=== PATIENT | female | born 2000 | race Caucasian/White ===

== ENCOUNTER 2021-02-05 22:57 | Inpatient (IN) | payer BC ==
[2021-02-05] MEDS ORDERED: methylPREDNISolone Sod Succ/PF 125 MG/2 ML VIAL ONE (23:37)
[2021-02-05] MEDS ORDERED: OCTAGAM 10% 20 GM, OCTAGAM 10% 5 GM in Admixture Fee 1 EACH IVPB SCH (23:45)
[2021-02-05 23:49] LABS: #Basophils 0.1 thou/uL (0.0-0.2); #Eosinphils 0.1 thou/uL (0.0-0.7); #Lymphocytes 3.8 thou/uL (1.20-3.40); #Monocytes 0.6 thou/uL (0.11-0.59); %Eosinophils 0.7 % (0.0-10.0); %Monocytes 7.2 % (0.0-4.0); %Neutrophils 47.1 % (31.0-61.0); Hemoglobin 13.4 g/dL (12.0-16.0); Mean Corpuscular HGB CONC 33.5 g/dL (32.0-36.0); Mean Corpuscular Hemoglobin 30.9 pg (25.0-35.0); Mean Corpuscular Volume 92.1 fL (78.0-98.0); Mean Platelet Volume 8.4 fL (7.4-10.4); Platelet Count 305 thou/uL (130-400); RBC Distribution Width 11.2 % (11.5-14.5); Red Blood Cell (RBC) Count 4.33 mill/uL (4.00-5.20); White Blood Cell (WBC) Count 8.5 thou/uL (4.8-10.8)
[2021-02-06 00:05] LABS: ALT (SGPT) 8 U/L (8-55); AST (SGOT) 15 U/L (5-34); Albumin 4.5 g/dL (3.5-5.0); Alkaline Phosphatase 77 U/L (40-100); Anion Gap 12 mmol/L (10-20); BUN (Urea Nitrogen) 5 mg/dL (7.0-18.7); Bilirubin, Total 0.5 mg/dL (0.2-1.2); CK (CPK) 56 U/L (29-168); Calc. Creatinine Clearance 0 mL/min (70-130); Calcium 10.1 mg/dL (7.8-10.44); Carbon Dioxide 28 mmol/L (22-29); Chloride 103 mmol/L (98-107); Globulin 3.3 g/dL (2.4-3.5); Glucose 95 mg/dL (70-105); Potassium 3.5 mmol/L (3.5-5.1); Protein, Total 7.8 g/dL (6.0-8.3); Sodium 139 mmol/L (136-145)
[2021-02-06 00:07] LABS: BHCG - Serum Negative (NEGATIVE); Pregs Control Background? CLEAR/WHITE (CLR/WHITE); Pregs Control Bar Appear? YES (CONTROL BAR)
[2021-02-06 02:27] LABS: SARS-CoV-2 NAA Rapid Test Not Detected (NotDetected)
[2021-02-06 02:48] VITALS: BMI 18.7
[2021-02-06 06:10] LABS: ALT (SGPT) 7 U/L (8-55); AST (SGOT) 11 U/L (5-34); Albumin 4.1 g/dL (3.5-5.0); Alkaline Phosphatase 71 U/L (40-100); Anion Gap 14 mmol/L (10-20); BUN (Urea Nitrogen) 6 mg/dL (7.0-18.7); Bilirubin, Total 0.4 mg/dL (0.2-1.2); Calc. Creatinine Clearance 100 mL/min (70-130); Calcium 10.1 mg/dL (7.8-10.44); Carbon Dioxide 23 mmol/L (22-29); Chloride 105 mmol/L (98-107); Globulin 3.7 g/dL (2.4-3.5); Glucose 217 mg/dL (70-105); Potassium 4.2 mmol/L (3.5-5.1); Protein, Total 7.8 g/dL (6.0-8.3); Sodium 138 mmol/L (136-145)
[2021-02-06 06:21] LABS: #Lymphocytes 0.5 thou/uL (1.20-3.40); #Neutrophils 4.8 thou/uL (1.40-6.50); %Basophils 0.1 % (0.0-1.0); %Eosinophils 0.2 % (0.0-10.0); %Lymphocytes 9.8 % (28.0-48.0); %Monocytes 0.5 % (0.0-4.0); %Neutrophils 89.4 % (31.0-61.0); Hemoglobin 12.5 g/dL (12.0-16.0); Mean Corpuscular HGB CONC 33.5 g/dL (32.0-36.0); Mean Corpuscular Volume 92.3 fL (78.0-98.0); Mean Platelet Volume 8.4 fL (7.4-10.4); Platelet Count 314 thou/uL (130-400); RBC Distribution Width 11.2 % (11.5-14.5); Red Blood Cell (RBC) Count 4.04 mill/uL (4.00-5.20); White Blood Cell (WBC) Count 5.3 thou/uL (4.8-10.8)
[2021-02-06] MEDS ORDERED: Ondansetron PF 4 MG/2 ML Vial IVP PRN (08:42)
[2021-02-06] MEDS: Gabapentin 100 MG CAP PO SCH ×4 (08:48→20:38)
[2021-02-06] MEDS: traMADol HCl 50 MG TAB PO PRN (08:48)
[2021-02-06] MEDS: Enoxaparin Sodium 60 MG/0.6 ML SYRINGE SC SCH ×2 (08:48→20:38)
[2021-02-06] MEDS: Sodium Chloride 0.9% 1,000 ML IV SCH ×2 (08:49→20:36)
[2021-02-06] MEDS ORDERED: OCTAGAM 10% 20 GM, OCTAGAM 10% 5 GM in Admixture Fee 1 EACH IVPB SCH (09:00)
[2021-02-06] MEDS ORDERED: Magnevist 469MG/ML 20 ML VIAL ONE ×2 (10:24)
[2021-02-07] MEDS: OCTAGAM 10% 20 GM, OCTAGAM 10% 5 GM in Admixture Fee 1 EACH IVPB SCH (01:21)
[2021-02-07 05:43] LABS: Hemoglobin 10.4 g/dL (12.0-16.0); Mean Corpuscular HGB CONC 33.8 g/dL (32.0-36.0); Mean Corpuscular Hemoglobin 31.9 pg (25.0-35.0); Mean Corpuscular Volume 94.5 fL (78.0-98.0); Mean Platelet Volume 8.2 fL (7.4-10.4); Platelet Count 218 thou/uL (130-400); RBC Distribution Width 11.3 % (11.5-14.5); Red Blood Cell (RBC) Count 3.25 mill/uL (4.00-5.20); White Blood Cell (WBC) Count 7.3 thou/uL (4.8-10.8)
[2021-02-07] MEDS: Sodium Chloride 0.9% 1,000 ML IV SCH ×2 (06:38→16:07)
[2021-02-07 07:00] LABS: Band 3 % (5-11); Lymphocytes 60 % (28-48); MDiff Complete? YES; Monocytes 1 % (0-4); Neutrophil 36 % (31-61)
[2021-02-07] MEDS: Gabapentin 100 MG CAP PO SCH ×4 (08:04→20:10)
[2021-02-07] MEDS: Enoxaparin Sodium 60 MG/0.6 ML SYRINGE SC SCH ×2 (08:04→20:10)
[2021-02-07] MEDS: traMADol HCl 50 MG TAB PO PRN (14:58)
[2021-02-08] MEDS: OCTAGAM 10% 20 GM, OCTAGAM 10% 5 GM in Admixture Fee 1 EACH IVPB SCH (01:42)
[2021-02-08] MEDS: Sodium Chloride 0.9% 1,000 ML IV SCH ×3 (01:50→21:15)
[2021-02-08 04:14] LABS: Anion Gap 8 mmol/L (10-20); BUN (Urea Nitrogen) 10 mg/dL (7.0-18.7); CRP (Inflammatory) Less than 0.50 mg/dL (= or < 0.5); Calc. Creatinine Clearance 116 mL/min (70-130); Calcium 8.8 mg/dL (7.8-10.44); Carbon Dioxide 29 mmol/L (22-29); Chloride 103 mmol/L (98-107); Glucose 93 mg/dL (70-105); Potassium 4.1 mmol/L (3.5-5.1); Sodium 136 mmol/L (136-145)
[2021-02-08 04:16] LABS: Hemoglobin 11.1 g/dL (12.0-16.0); Mean Corpuscular HGB CONC 33.4 g/dL (32.0-36.0); Mean Corpuscular Hemoglobin 31.8 pg (25.0-35.0); Mean Corpuscular Volume 95.2 fL (78.0-98.0); Mean Platelet Volume 8.4 fL (7.4-10.4); Platelet Count 232 thou/uL (130-400); RBC Distribution Width 11.3 % (11.5-14.5); White Blood Cell (WBC) Count 5.6 thou/uL (4.8-10.8)
[2021-02-08 04:21] LABS: Hemoglobin A1c 4.9 % (4.0-6.0)
[2021-02-08 04:43] LABS: Eosinophils 3 % (0-10); Lymphocytes 59 % (28-48); MDiff Complete? YES; Monocytes 6 % (0-4); Neutrophil 32 % (31-61); RBC Morphology Normal
[2021-02-08] MEDS: traMADol HCl 50 MG TAB PO PRN ×3 (06:04→17:22)
[2021-02-08] MEDS ORDERED: SUMAtriptan Succinate 6 MG/0.5 ML VIAL SC PRN (07:34)
[2021-02-08] MEDS ORDERED: Lorazepam 1 MG TAB PO PRN (07:45)
[2021-02-08] MEDS: Enoxaparin Sodium 60 MG/0.6 ML SYRINGE SC SCH ×2 (08:19→21:14)
[2021-02-08] MEDS: Gabapentin 100 MG CAP PO SCH ×4 (08:19→21:14)
[2021-02-08] MEDS ORDERED: Prochlorperazine 10 MG/2 ML VIAL IVP SCH (13:15)
[2021-02-08] MEDS ORDERED: diphenhydrAMINE 50 MG/ML VIAL IVP SCH (13:15)
[2021-02-09] MEDS: OCTAGAM 10% 20 GM, OCTAGAM 10% 5 GM in Admixture Fee 1 EACH IVPB SCH (01:27)
[2021-02-09] MEDS: traMADol HCl 50 MG TAB PO PRN ×2 (02:03→09:35)
[2021-02-09 03:59] LABS: #Lymphocytes 2.5 thou/uL (1.20-3.40); #Monocytes 0.6 thou/uL (0.11-0.59); #Neutrophils 3.2 thou/uL (1.40-6.50); %Basophils 0.6 % (0.0-1.0); %Eosinophils 0.5 % (0.0-10.0); %Lymphocytes 39.8 % (28.0-48.0); %Monocytes 8.9 % (0.0-4.0); %Neutrophils 50.2 % (31.0-61.0); Hemoglobin 11.6 g/dL (12.0-16.0); Mean Corpuscular HGB CONC 35.4 g/dL (32.0-36.0); Mean Corpuscular Hemoglobin 32.7 pg (25.0-35.0); Mean Corpuscular Volume 92.3 fL (78.0-98.0); Mean Platelet Volume 8.4 fL (7.4-10.4); Platelet Count 239 thou/uL (130-400); RBC Distribution Width 10.9 % (11.5-14.5); Red Blood Cell (RBC) Count 3.53 mill/uL (4.00-5.20); White Blood Cell (WBC) Count 6.4 thou/uL (4.8-10.8)
[2021-02-09 04:18] LABS: Anion Gap 10 mmol/L (10-20); BUN (Urea Nitrogen) 8 mg/dL (7.0-18.7); CRP (Inflammatory) Less than 0.50 mg/dL (= or < 0.5); Calc. Creatinine Clearance 101 mL/min (70-130); Calcium 8.6 mg/dL (7.8-10.44); Carbon Dioxide 27 mmol/L (22-29); Chloride 100 mmol/L (98-107); Glucose 164 mg/dL (70-105); Potassium 3.4 mmol/L (3.5-5.1); Sodium 134 mmol/L (136-145)
[2021-02-09 04:55] LABS: Syphilis Antibody Index 1.84 S/CO (<1.00 Non-Reactive)
[2021-02-09] MEDS: Gabapentin 100 MG CAP PO SCH ×4 (08:48→20:50)
[2021-02-09] MEDS: Enoxaparin Sodium 60 MG/0.6 ML SYRINGE SC SCH ×2 (08:48→20:50)
[2021-02-09] MEDS: Sodium Chloride 0.9% 1,000 ML IV SCH ×2 (08:49→16:25)
[2021-02-09 10:14] LABS: Syphilis Antibody INDETERMINATE (Nonreactive)
[2021-02-09] MEDS ORDERED: Promethazine HCl 25 MG in Sodium Chloride 0.9% 50 ML IVPB PRN (11:44)
[2021-02-10] MEDS: OCTAGAM 10% 20 GM, OCTAGAM 10% 5 GM in Admixture Fee 1 EACH IVPB SCH (01:24)
[2021-02-10] MEDS: Sodium Chloride 0.9% 1,000 ML IV SCH ×2 (04:13→11:14)
[2021-02-10] MEDS: Gabapentin 100 MG CAP PO SCH ×2 (08:17→14:14)
[2021-02-10] MEDS: Enoxaparin Sodium 60 MG/0.6 ML SYRINGE SC SCH (08:19)
[2021-02-10 09:02] LABS: #Basophils 0.1 thou/uL (0.0-0.2); #Eosinphils 0.2 thou/uL (0.0-0.7); #Lymphocytes 2.7 thou/uL (1.20-3.40); #Monocytes 0.7 thou/uL (0.11-0.59); %Basophils 1.1 % (0.0-1.0); %Eosinophils 2.9 % (0.0-10.0); %Lymphocytes 48.8 % (28.0-48.0); %Monocytes 12.1 % (0.0-4.0); %Neutrophils 35.1 % (31.0-61.0); Hemoglobin 11.9 g/dL (12.0-16.0); Mean Corpuscular HGB CONC 32.6 g/dL (32.0-36.0); Mean Corpuscular Hemoglobin 30.2 pg (25.0-35.0); Mean Corpuscular Volume 92.6 fL (78.0-98.0); Mean Platelet Volume 8.6 fL (7.4-10.4); Platelet Count 275 thou/uL (130-400); RBC Distribution Width 11.1 % (11.5-14.5); Red Blood Cell (RBC) Count 3.94 mill/uL (4.00-5.20); White Blood Cell (WBC) Count 5.6 thou/uL (4.8-10.8)
[2021-02-10 09:34] LABS: ALT (SGPT) 20 U/L (8-55); AST (SGOT) 25 U/L (5-34); Albumin 3.4 g/dL (3.5-5.0); Alkaline Phosphatase 56 U/L (40-100); Anion Gap 9 mmol/L (10-20); BUN (Urea Nitrogen) 6 mg/dL (7.0-18.7); Bilirubin, Total 0.2 mg/dL (0.2-1.2); CRP (Inflammatory) Less than 0.50 mg/dL (= or < 0.5); Calc. Creatinine Clearance 121 mL/min (70-130); Calcium 9.4 mg/dL (7.8-10.44); Carbon Dioxide 30 mmol/L (22-29); Chloride 102 mmol/L (98-107); Globulin 5.1 g/dL (2.4-3.5); Glucose 85 mg/dL (70-105); Potassium 4.2 mmol/L (3.5-5.1); Protein, Total 8.5 g/dL (6.0-8.3); Sodium 137 mmol/L (136-145)
[2021-02-10 15:42] VITALS: BP 119/81; TEMP 98.4
== END 2021-02-10 16:25 | disposition home or self-care (01) | DRG 96 ==
LOC: ERS 22:57 → IMCU/EMU 02-06 00:19 → T4-B 02-09 14:35
PROVIDERS: ADMIT Specialist; ATTEND Specialist
PROC: 30233S1 Transfusion of Nonautologous Globulin into Peripheral Vein, Percutaneous Approach (ICD-10-PCS; principal; 2021-02-06)
DX: G61.0 Guillain-Barre syndrome (principal); R00.1 Bradycardia, unspecified; Z20.822 Contact with and (suspected) exposure to COVID-19; F41.0 Panic disorder [episodic paroxysmal anxiety]; G43.909 Migraine, unspecified, not intractable, without status migrainosus
CPT/HCPCS: 36415; 70553; 72158; 80048; 80053; 82533; 82550; 83036; 83735; 83880; 84443; 84703; 85025; 85379; 85652; 86140; 86593; 86780; 93005; 93306; 96365; 96375; A9579; J0780; J1200; J1568; J1650; J2405; J2930; J3030; J7050; U0002

== ENCOUNTER 2021-02-17 22:08 | Inpatient (IN) | payer BC ==
[2021-02-17 23:43] LABS: #Basophils 0.1 thou/uL (0.0-0.2); #Eosinphils 0.1 thou/uL (0.0-0.7); #Lymphocytes 1.5 thou/uL (1.20-3.40); #Monocytes 0.3 thou/uL (0.11-0.59); #Neutrophils 6.6 thou/uL (1.40-6.50); %Basophils 0.8 % (0.0-1.0); %Eosinophils 0.6 % (0.0-10.0); %Lymphocytes 17.1 % (28.0-48.0); %Monocytes 3.9 % (0.0-4.0); %Neutrophils 77.6 % (31.0-61.0); Hemoglobin 13.3 g/dL (12.0-16.0); Mean Corpuscular HGB CONC 34.1 g/dL (32.0-36.0); Mean Corpuscular Hemoglobin 31.9 pg (25.0-35.0); Mean Corpuscular Volume 93.4 fL (78.0-98.0); Mean Platelet Volume 8.7 fL (7.4-10.4); Platelet Count 275 thou/uL (130-400); RBC Distribution Width 11.3 % (11.5-14.5); Red Blood Cell (RBC) Count 4.18 mill/uL (4.00-5.20); White Blood Cell (WBC) Count 8.5 thou/uL (4.8-10.8)
[2021-02-17 23:57] LABS: ALT (SGPT) 14 U/L (8-55); AST (SGOT) 17 U/L (5-34); Albumin 4.2 g/dL (3.5-5.0); Alkaline Phosphatase 68 U/L (40-100); Anion Gap 12 mmol/L (10-20); BUN (Urea Nitrogen) 13 mg/dL (7.0-18.7); Bilirubin, Total 0.5 mg/dL (0.2-1.2); Calc. Creatinine Clearance 0 mL/min (70-130); Calcium 9.9 mg/dL (7.8-10.44); Carbon Dioxide 27 mmol/L (22-29); Chloride 103 mmol/L (98-107); Globulin 4.3 g/dL (2.4-3.5); Glucose 96 mg/dL (70-105); Potassium 4.6 mmol/L (3.5-5.1); Protein, Total 8.5 g/dL (6.0-8.3); Sodium 137 mmol/L (136-145)
[2021-02-18] MEDS ORDERED: Acetaminophen 325 MG TAB PO PRN (09:16)
[2021-02-18] MEDS ORDERED: Acetaminophen/Codeine 30-300mg Tablet ONE (09:23)
[2021-02-18] MEDS: Acetaminophen/Codeine 30-300mg Tablet PO PRN (09:29)
[2021-02-18 09:59] LABS: #Lymphocytes 0.9 thou/uL (1.20-3.40); #Monocytes 0.2 thou/uL (0.11-0.59); #Neutrophils 6.6 thou/uL (1.40-6.50); %Basophils 0.1 % (0.0-1.0); %Eosinophils 0.1 % (0.0-10.0); %Lymphocytes 11.8 % (28.0-48.0); %Monocytes 2.2 % (0.0-4.0); %Neutrophils 85.9 % (31.0-61.0); Hemoglobin 13.4 g/dL (12.0-16.0); Mean Corpuscular Hemoglobin 31.7 pg (25.0-35.0); Mean Corpuscular Volume 93.2 fL (78.0-98.0); Mean Platelet Volume 8.7 fL (7.4-10.4); Platelet Count 304 thou/uL (130-400); RBC Distribution Width 11.2 % (11.5-14.5); Red Blood Cell (RBC) Count 4.24 mill/uL (4.00-5.20); White Blood Cell (WBC) Count 7.7 thou/uL (4.8-10.8)
[2021-02-18 10:14] LABS: Anion Gap 14 mmol/L (10-20); BUN (Urea Nitrogen) 11 mg/dL (7.0-18.7); CRP (Inflammatory) Less than 0.50 mg/dL (= or < 0.5); Calc. Creatinine Clearance 0 mL/min (70-130); Calcium 9.5 mg/dL (7.8-10.44); Carbon Dioxide 21 mmol/L (22-29); Chloride 101 mmol/L (98-107); Glucose 161 mg/dL (70-105); Potassium 4.4 mmol/L (3.5-5.1); Sodium 132 mmol/L (136-145)
[2021-02-18] MEDS ORDERED: Acetaminophen 325 MG TAB ONE (19:15)
[2021-02-18] MEDS ORDERED: Ondansetron HCl/PF 8 MG in Sodium Chloride 0.9% 50 ML IVPB PRN (20:40)
[2021-02-18 20:44] LABS: SARS-CoV-2 NAA Rapid Test Not Detected (NotDetected)
[2021-02-18 22:45] VITALS: BMI 19.1
[2021-02-19] MEDS: Acetaminophen/Codeine 30-300mg Tablet PO PRN ×2 (00:07→22:25)
[2021-02-19 04:04] LABS: #Eosinphils 0.1 thou/uL (0.0-0.7); #Lymphocytes 4.2 thou/uL (1.20-3.40); #Monocytes 0.7 thou/uL (0.11-0.59); #Neutrophils 4.6 thou/uL (1.40-6.50); %Basophils 0.4 % (0.0-1.0); %Eosinophils 0.7 % (0.0-10.0); %Lymphocytes 43.8 % (28.0-48.0); %Monocytes 7.1 % (0.0-4.0); %Neutrophils 47.9 % (31.0-61.0); Hemoglobin 11.8 g/dL (12.0-16.0); Mean Corpuscular HGB CONC 33.9 g/dL (32.0-36.0); Mean Corpuscular Hemoglobin 31.8 pg (25.0-35.0); Mean Corpuscular Volume 93.7 fL (78.0-98.0); Platelet Count 256 thou/uL (130-400); RBC Distribution Width 11.2 % (11.5-14.5); Red Blood Cell (RBC) Count 3.72 mill/uL (4.00-5.20); White Blood Cell (WBC) Count 9.6 thou/uL (4.8-10.8)
[2021-02-19 04:33] LABS: Anion Gap 10 mmol/L (10-20); BUN (Urea Nitrogen) 9 mg/dL (7.0-18.7); CRP (Inflammatory) Less than 0.50 mg/dL (= or < 0.5); Calc. Creatinine Clearance 115 mL/min (70-130); Calcium 9.1 mg/dL (7.8-10.44); Carbon Dioxide 29 mmol/L (22-29); Cardiac Risk 3.2 (Less than 4.5); Chloride 103 mmol/L (98-107); Cholesterol 139 mg/dl (< 200 Desired); Glucose 94 mg/dL (70-105); HDL Cholesterol 43 mg/dL (>60 Neg Risk); LDL Cholesterol, Calculated 90 mg/dL; Sodium 138 mmol/L (136-145); Triglycerides 30 mg/dL (Less than 150)
[2021-02-19 08:52] LABS: Ferritin 55.38 ng/mL (10-291); Thyroid Stimulating Hormone 1.2039 uIU/mL (0.35-4.94)
[2021-02-19 09:01] LABS: Folate (Folic Acid) 6.5 ng/mL (7.0-31.4)
[2021-02-19 15:01] LABS: Color Of CSF Supernatant COLORLESS (Colorless); Tube # 1; Unspun CSF Color COLORLESS (Colorless)
[2021-02-19 15:14] LABS: CSF, Glucose 60 mg/dl (40-70); CSF, Protein 27 mg/dL (15-40)
[2021-02-19 15:32] LABS: CSF Source CSF; Clarity Clear (Clear); Tube # 4
[2021-02-19 15:35] LABS: Cell Count Non Hematic 20 %; Lymphocytes 78 %; Segmented Neutrophils 2 %
[2021-02-19 22:59] LABS: Pregnancy Test - Urine (BHCG) Negative (Negative); Pregu Control Background? CLEAR/WHITE (CLR/WHITE); Pregu Control Bar Appear? YES (CONTROL BAR); Specific Gravity 1.009 (1.002-1.036)
[2021-02-20 04:22] LABS: #Basophils 0.1 thou/uL (0.0-0.2); #Eosinphils 0.1 thou/uL (0.0-0.7); #Lymphocytes 3.6 thou/uL (1.20-3.40); #Monocytes 0.7 thou/uL (0.11-0.59); #Neutrophils 4.9 thou/uL (1.40-6.50); %Basophils 0.7 % (0.0-1.0); %Eosinophils 0.9 % (0.0-10.0); %Lymphocytes 38.8 % (28.0-48.0); %Monocytes 7.3 % (0.0-4.0); %Neutrophils 52.3 % (31.0-61.0); Hemoglobin 11.9 g/dL (12.0-16.0); Mean Corpuscular HGB CONC 33.7 g/dL (32.0-36.0); Mean Corpuscular Hemoglobin 31.3 pg (25.0-35.0); Mean Corpuscular Volume 93.1 fL (78.0-98.0); Mean Platelet Volume 8.8 fL (7.4-10.4); Platelet Count 276 thou/uL (130-400); RBC Distribution Width 11.1 % (11.5-14.5); Red Blood Cell (RBC) Count 3.81 mill/uL (4.00-5.20); White Blood Cell (WBC) Count 9.4 thou/uL (4.8-10.8)
[2021-02-20 04:28] LABS: Anion Gap 10 mmol/L (10-20); BUN (Urea Nitrogen) 10 mg/dL (7.0-18.7); Calc. Creatinine Clearance 121 mL/min (70-130); Calcium 9.4 mg/dL (7.8-10.44); Carbon Dioxide 29 mmol/L (22-29); Chloride 102 mmol/L (98-107); Glucose 87 mg/dL (70-105); Potassium 4.2 mmol/L (3.5-5.1); Sodium 137 mmol/L (136-145)
[2021-02-20] MEDS: Acetaminophen/Codeine 30-300mg Tablet PO PRN ×2 (07:55→21:14)
[2021-02-20] MEDS ORDERED: Atropine Sulfate 1 mg/10 ml Syringe IVP PRN (09:55)
[2021-02-20 12:40] LABS: A/G Ratio 0.8 (0.7-1.7); Albumin 3.8 g/dL (2.9-4.4); Alpha 1 0.3 g/dL (0.0-0.4); Alpha 2 0.9 g/dL (0.4-1.0); Beta 1.1 g/dL (0.7-1.3); Gamma 2.3 g/dL (0.4-1.8); Globulin, Total 4.5 g/dL (2.2-3.9); M-Spike Not Observed g/dL (Not Observed)
[2021-02-21 04:11] LABS: #Basophils 0.1 thou/uL (0.0-0.2); #Eosinphils 0.1 thou/uL (0.0-0.7); #Lymphocytes 3.1 thou/uL (1.20-3.40); #Monocytes 0.7 thou/uL (0.11-0.59); #Neutrophils 4.5 thou/uL (1.40-6.50); %Basophils 0.8 % (0.0-1.0); %Eosinophils 0.9 % (0.0-10.0); %Lymphocytes 37.1 % (28.0-48.0); %Neutrophils 53.2 % (31.0-61.0); Mean Corpuscular HGB CONC 33.6 g/dL (32.0-36.0); Mean Corpuscular Hemoglobin 31.6 pg (25.0-35.0); Mean Corpuscular Volume 94.1 fL (78.0-98.0); Mean Platelet Volume 8.6 fL (7.4-10.4); Platelet Count 261 thou/uL (130-400); RBC Distribution Width 11.1 % (11.5-14.5); Red Blood Cell (RBC) Count 3.81 mill/uL (4.00-5.20); White Blood Cell (WBC) Count 8.4 thou/uL (4.8-10.8)
[2021-02-21 04:30] LABS: Anion Gap 9 mmol/L (10-20); BUN (Urea Nitrogen) 12 mg/dL (7.0-18.7); Calc. Creatinine Clearance 128 mL/min (70-130); Calcium 9.7 mg/dL (7.8-10.44); Carbon Dioxide 30 mmol/L (22-29); Chloride 102 mmol/L (98-107); Glucose 92 mg/dL (70-105); Potassium 4.1 mmol/L (3.5-5.1); Sodium 137 mmol/L (136-145)
[2021-02-21] MEDS: Acetaminophen/Codeine 30-300mg Tablet PO PRN (22:05)
[2021-02-22 03:37] LABS: #Basophils 0.1 thou/uL (0.0-0.2); #Eosinphils 0.1 thou/uL (0.0-0.7); #Lymphocytes 3.6 thou/uL (1.20-3.40); #Monocytes 0.7 thou/uL (0.11-0.59); #Neutrophils 4.1 thou/uL (1.40-6.50); %Basophils 0.7 % (0.0-1.0); %Eosinophils 1.3 % (0.0-10.0); %Lymphocytes 42.2 % (28.0-48.0); %Monocytes 7.7 % (0.0-4.0); Hemoglobin 12.8 g/dL (12.0-16.0); Mean Corpuscular HGB CONC 36.2 g/dL (32.0-36.0); Mean Corpuscular Hemoglobin 33.2 pg (25.0-35.0); Mean Corpuscular Volume 91.9 fL (78.0-98.0); Mean Platelet Volume 8.7 fL (7.4-10.4); Platelet Count 280 thou/uL (130-400); RBC Distribution Width 11.1 % (11.5-14.5); Red Blood Cell (RBC) Count 3.85 mill/uL (4.00-5.20); White Blood Cell (WBC) Count 8.6 thou/uL (4.8-10.8)
[2021-02-22 03:52] LABS: Anion Gap 10 mmol/L (10-20); BUN (Urea Nitrogen) 10 mg/dL (7.0-18.7); Calc. Creatinine Clearance 120 mL/min (70-130); Calcium 9.4 mg/dL (7.8-10.44); Carbon Dioxide 30 mmol/L (22-29); Chloride 101 mmol/L (98-107); Glucose 94 mg/dL (70-105); Sodium 137 mmol/L (136-145)
[2021-02-22 18:06] LABS: ANA Symphony (Qualitative) POSITIVE (Negative); ANA Symphony (Quantitative) 1.3 Ratio (< 0.7 Negative); CENP IgG Antibody 0.9 EliAU/mL (<7 Negative); EliA Thy New Method **** NEW METHOD ****; EliA Vaculitis New Method **** NEW METHOD ****; Jo-1 IgG Antibody Less than 0.3 EliAU/mL (<7 Negative); Mitochondrial Ab 3.4 U/mL (<4 Negative); RNP70 IgG Antibody 0.3 EliAU/mL (<7 Negative); SSB/La IgG Antibody 0.5 EliAU/mL (<7 Negative); Scleroderma-70 IgG Antibody 1.3 EliAU/mL (<7 Negative); Smith D IgG Antibody 3.5 EliAU/mL (<7 Negative); dsDNA IgG Antibody 1.8 IU/mL (<10 Negative)
[2021-02-22] MEDS ORDERED: Cyanocobalamin 1000 MCG/ML VIAL IM SCH (19:00)
[2021-02-22] MEDS ORDERED: Electrolyte Replacement Protocol 1 EACH FS SCH (19:00)
[2021-02-22] MEDS ORDERED: Polyethylene Glycol 3350 17 GM Packet PO PRN (19:05)
[2021-02-22] MEDS: Folic Acid 1 MG TAB PO SCH (20:28)
[2021-02-22] MEDS: Enoxaparin Sodium 40 MG/0.4 ML SYRINGE SC SCH (20:28)
[2021-02-22] MEDS: Acetaminophen/Codeine 30-300mg Tablet PO PRN (20:29)
[2021-02-23 04:25] LABS: Hemoglobin 12.4 g/dL (12.0-16.0); Mean Corpuscular Hemoglobin 32.1 pg (25.0-35.0); Mean Corpuscular Volume 91.9 fL (78.0-98.0); Mean Platelet Volume 8.7 fL (7.4-10.4); Platelet Count 280 thou/uL (130-400); Red Blood Cell (RBC) Count 3.85 mill/uL (4.00-5.20); White Blood Cell (WBC) Count 7.4 thou/uL (4.8-10.8)
[2021-02-23 04:31] LABS: Phosphorus 4.2 mg/dL (2.3-4.7)
[2021-02-23 04:40] LABS: Anion Gap 10 mmol/L (10-20); BUN (Urea Nitrogen) 17 mg/dL (7.0-18.7); Calc. Creatinine Clearance 124 mL/min (70-130); Calcium 9.6 mg/dL (7.8-10.44); Carbon Dioxide 29 mmol/L (22-29); Chloride 100 mmol/L (98-107); Glucose 89 mg/dL (70-105); Magnesium 1.9 mg/dL (1.7-2.2); Potassium 4.1 mmol/L (3.5-5.1); Sodium 135 mmol/L (136-145)
[2021-02-23 04:52] LABS: Eosinophils 2 % (0-10); Lymphocytes 53 % (28-48); MDiff Complete? YES; Monocytes 7 % (0-4); Neutrophil 34 % (31-61); Reactive Lymphocytes 3 % (0-10)
[2021-02-23] MEDS ORDERED: Magnesium 2 GM/50 ML 2 GM in Premix Bag 1 BAG IVPB SCH (05:30)
[2021-02-23] MEDS: Cyanocobalamin (Vitamin B-12) 1,000 MCG TAB PO SCH (08:00)
[2021-02-23] MEDS: pyridOXINE 50 MG (B6) TAB PO SCH (08:00)
[2021-02-23] MEDS: Calcium Carbonate 600 MG + Vit D TAB PO SCH ×2 (08:00→16:50)
[2021-02-23] MEDS: Folic Acid 1 MG TAB PO SCH ×2 (08:00→20:15)
[2021-02-23] MEDS: Multivit, Therapeutic 1 TAB PO SCH (08:00)
[2021-02-23] MEDS ORDERED: Bisacodyl 10 MG SUPP PR PRN (12:56)
[2021-02-23] MEDS: Senokot S 8.6-50 MG TAB PO SCH (20:14)
[2021-02-23] MEDS: Enoxaparin Sodium 40 MG/0.4 ML SYRINGE SC SCH (20:14)
[2021-02-23] MEDS: Acetaminophen/Codeine 30-300mg Tablet PO PRN (22:34)
[2021-02-24 03:59] LABS: #Basophils 0.1 thou/uL (0.0-0.2); #Eosinphils 0.1 thou/uL (0.0-0.7); #Lymphocytes 4.4 thou/uL (1.20-3.40); #Monocytes 0.8 thou/uL (0.11-0.59); #Neutrophils 3.6 thou/uL (1.40-6.50); %Basophils 1.1 % (0.0-1.0); %Eosinophils 1.3 % (0.0-10.0); %Lymphocytes 48.5 % (28.0-48.0); %Monocytes 8.8 % (0.0-4.0); %Neutrophils 40.3 % (31.0-61.0); Hemoglobin 12.5 g/dL (12.0-16.0); Mean Corpuscular HGB CONC 34.1 g/dL (32.0-36.0); Mean Corpuscular Hemoglobin 31.4 pg (25.0-35.0); Mean Corpuscular Volume 92.2 fL (78.0-98.0); Mean Platelet Volume 8.6 fL (7.4-10.4); Platelet Count 285 thou/uL (130-400); RBC Distribution Width 11.2 % (11.5-14.5); Red Blood Cell (RBC) Count 3.98 mill/uL (4.00-5.20)
[2021-02-24 04:14] LABS: Anion Gap 10 mmol/L (10-20); BUN (Urea Nitrogen) 14 mg/dL (7.0-18.7); Calc. Creatinine Clearance 117 mL/min (70-130); Calcium 9.8 mg/dL (7.8-10.44); Carbon Dioxide 28 mmol/L (22-29); Chloride 102 mmol/L (98-107); Glucose 93 mg/dL (70-105); Potassium 4.1 mmol/L (3.5-5.1); Sodium 136 mmol/L (136-145)
[2021-02-24] MEDS ORDERED: Polyethylene Glycol 3350 17 GM Packet PO SCH (09:00)
[2021-02-24] MEDS: pyridOXINE 50 MG (B6) TAB PO SCH (09:16)
[2021-02-24] MEDS: Cyanocobalamin (Vitamin B-12) 1,000 MCG TAB PO SCH (09:16)
[2021-02-24] MEDS: Calcium Carbonate 600 MG + Vit D TAB PO SCH ×2 (09:16→18:08)
[2021-02-24] MEDS: Folic Acid 1 MG TAB PO SCH (09:16)
[2021-02-24] MEDS: Multivit, Therapeutic 1 TAB PO SCH (09:16)
[2021-02-24] MEDS: Senokot S 8.6-50 MG TAB PO SCH (09:16)
[2021-02-24 16:00] VITALS: BP 125/73
[2021-02-24 16:19] VITALS: TEMP 97.9
[2021-02-26 15:13] LABS: CSF IgG Index 0.5 (0.0-0.7); CSF IgG Synthesis Rate -7.6 mg/day (-9.9 TO +3.3); IgG/Alb CSF 0.25 (0.00-0.25)
== END 2021-02-24 18:23 | disposition short-term general hospital (02) | DRG 53 ==
LOC: ERS 22:08 → ERHOLD 02-18 00:26 → IMCU/EMU 02-18 20:36
PROVIDERS: ADMIT Specialist; ATTEND Specialist
PROC: 009U3ZX Drainage of Spinal Canal, Percutaneous Approach, Diagnostic (ICD-10-PCS; principal; 2021-02-19)
PROC: B01B1ZZ Fluoroscopy of Spinal Cord using Low Osmolar Contrast (ICD-10-PCS; 2021-02-19)
DX: G82.20 Paraplegia, unspecified (principal); Z20.822 Contact with and (suspected) exposure to COVID-19; R00.1 Bradycardia, unspecified; I45.5 Other specified heart block; D52.9 Folate deficiency anemia, unspecified; D51.9 Vitamin B12 deficiency anemia, unspecified; Z79.1 Long term (current) use of non-steroidal anti-inflammatories (NSAID)
CPT/HCPCS: 36415; 62270; 72149; 72156; 72157; 80048; 80053; 80061; 81025; 82040; 82042; 82607; 82728; 82746; 82784; 82945; 83516; 83540; 83550; 83735; 83916; 84100; 84157; 84165; 84443; 85025; 85060; 85652; 86038; 86140; 86160; 86225; 86235; 86376; 87498; 89051; 95816; 95819; 95957; 99285; J1650; J3420; J3475; U0002